=== PATIENT | male | born 1965 | race Caucasian/White ===

== ENCOUNTER 2019-07-06 15:40 | Emergency (ER) | payer BC, OTHER ==
[~2019-07-06] VITALS: Ht 182.9 cm; Wt 84.1 kg
[2019-07-06] MEDS ORDERED: iohexol 300mg/ml 100ml inj. ONE (16:01)
[2019-07-06 16:24] LABS: BASOPHILS % (AUTO) 0.3 % (0-1); EOSINOPHILS # (AUTO) 0.1 X10'3 (0-0.9); HEMATOCRIT 43.1 % (42.0-52.0); HEMOGLOBIN 14.4 g/dl (14.0-17.9); LYMPHOCYTES # (AUTO) 1.1 X10'3 (1.1-4.8); LYMPHOCYTES % (AUTO) 9.8 % (21-51); MEAN CORPUSCULAR HEMOGLOBIN 30.1 PG (27.0-31.0); MEAN CORPUSCULAR HGB CONC 33.5 g/dL (33.0-36.5); MEAN PLATELET VOLUME 7.7 FL (7.4-10.4); MONOCYTES # (AUTO) 0.8 X10'3 (0-0.9); MONOCYTES % (AUTO) 7.3 % (2-12); NEUTROPHILS # (AUTO) 9.3 X10'3 (1.8-7.7); NEUTROPHILS % (AUTO) 81.6 % (42-75); PLATELET COUNT 354 X10'3 (140-440); RED BLOOD COUNT 4.79 X10'6 (4.70-6.10); RED CELL DISTRIBUTION WIDTH 15.4 % (11.5-14.5); WHITE BLOOD COUNT 11.4 X10'3 (4.5-11.0)
[2019-07-06 16:40] LABS: ALANINE AMINOTRANSFERASE 32 U/L (12-78); ALBUMIN 3.7 G/DL (3.4-5.0); ALBUMIN/GLOBULIN RATIO 0.8 (1.1-1.5); ALKALINE PHOSPHATASE 93 IU/L (46-116); ANION GAP 7 (8-16); ASPARTATE AMINO TRANSFERASE 11 U/L (10-37); BILIRUBIN,TOTAL 0.4 MG/DL (0.1-1.0); BLOOD UREA NITROGEN 20 MG/DL (7-18); BUN/CREATININE RATIO 21.5 (5.4-32.0); CALCIUM 9.1 MG/DL (8.5-10.1); CHLORIDE 105 MMOL/L (99-107); CREATININE 0.93 MG/DL (0.60-1.10); GLUCOSE 116 MG/DL (70-104); SODIUM 138 MMOL/L (135-145); TOTAL CARBON DIOXIDE 26.3 MMOL/L (24-32); TOTAL PROTEIN 8.1 G/DL (6.4-8.2); eGFR 85 ML/MIN
[2019-07-06 16:42] LABS: CREATINE KINASE 126 U/L (39-308)
[2019-07-06 16:45] LABS: ETHANOL < 0.010 GM/DL (0.0-0.010)
[2019-07-06 16:46] LABS: PARTIAL THROMBOPLASTIN TIME 31 SECONDS (22-32)
--- NOTE | 2019-07-06 17:06 | NUR ---
TRAUMA CALLED OFF AT [address] JONES
[2019-07-06] MEDS ORDERED: HYDR-3965 PO (17:19)
[2019-07-06 17:51] VITALS: BP 132/88
[2019-07-06] MEDS ORDERED: ketorolac trometh. 30mg/ml inj. IV ONE (18:00)
== END 2019-07-06 18:14 | disposition home or self-care (01) ==
LOC: ER 15:40
DX: S32.592A Other specified fracture of left pubis, initial encounter for closed fracture (principal); S22.42XA Multiple fractures of ribs, left side, initial encounter for closed fracture; S40.812A Abrasion of left upper arm, initial encounter; V89.2XXA Person injured in unspecified motor-vehicle accident, traffic, initial encounter; Y93.89 Activity, other specified; Y92.488 Other paved roadways as the place of occurrence of the external cause; Y99.8 Other external cause status
CPT/HCPCS: 36415; 71045; 71260; 73030; 73502; 74177; 80053; 80320; 82550; 85025; 85610; 85730; 96374; 99284; J1885; Q9967